=== PATIENT | male | born 1980 | race Asian ===

== ENCOUNTER 2018-12-30 20:27 | Emergency (ER) | payer SELFPAY ==
[~2018-12-30] VITALS: Ht 162.6 cm; Wt 63.5 kg
[2018-12-30 20:49] VITALS: BP 160/92
[2018-12-30] MEDS ORDERED: IBUPROFEN 200 MG TABLET ONE (22:36)
[2018-12-30] MEDS ORDERED: IBUPROFEN 600 MG TABLET PO ONE (22:36)
[2018-12-30] MEDS ORDERED: IBUPROFEN 400 MG TABLET PO ONE (23:00)
== END 2018-12-31 00:29 | disposition home or self-care (01) ==
LOC: ER 20:33
DX: M54.5 Low back pain (principal); W01.0XXA Fall on same level from slipping, tripping and stumbling without subsequent striking against object, initial encounter; Y93.89 Activity, other specified; Y92.89 Other specified places as the place of occurrence of the external cause; Y99.8 Other external cause status
CPT/HCPCS: 72100-TC

== ENCOUNTER 2019-01-20 18:53 | Emergency (ER) | payer SELFPAY ==
[~2019-01-20] VITALS: Ht 162.6 cm; Wt 63.5 kg
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
--- NOTE | 2019-01-20 20:22 | NUR ---
PT IN CT
--- NOTE | 2019-01-20 20:29 | NUR ---
PT BACK FROM RADIOLOGY. PENDING CT RESULTS.
--- NOTE | 2019-01-20 21:29 | NUR ---
Patient discharged to home in stable condition. Written and verbal after care instructions given. Patient verbalizes understanding of instruction. Pt ambulatory with a steady gait
[2019-01-20 21:31] VITALS: BP 129/72
== END 2019-01-20 21:32 | disposition home or self-care (01) ==
LOC: ER 18:55
DX: S13.8XXA Sprain of joints and ligaments of other parts of neck, initial encounter (principal); S09.8XXA Other specified injuries of head, initial encounter; R51 Headache; Z60.2 Problems related to living alone; W01.198A Fall on same level from slipping, tripping and stumbling with subsequent striking against other object, initial encounter; Y93.89 Activity, other specified; Y92.002 Bathroom of unspecified non-institutional (private) residence as the place of occurrence of the external cause; Y99.8 Other external cause status
CPT/HCPCS: 70450-TC; 72125-TC